=== PATIENT | female | born 1980 | race Caucasian/White ===

== ENCOUNTER 2019-04-05 15:28 | Emergency (ER) | payer OTHER ==
[~2019-04-05] VITALS: Ht 170.2 cm; Wt 81.8 kg
[2019-04-05] MEDS ORDERED: KEPP1TAB PO (15:42)
[2019-04-05] MEDS ORDERED: PRAZ5CAP PO (15:42)
[2019-04-05] MEDS ORDERED: TRAZ-189 PO (15:42)
[2019-04-05] MEDS ORDERED: CLONI1TA PO (15:42)
[2019-04-05] MEDS ORDERED: BUSP30TA PO (15:42)
[2019-04-05 16:07] LABS: BASO # 0.1 10^3/uL (0.0-0.2); BASO % 0.8 % (0.0-1.0); EOS # 0.1 10^3/uL (0.0-0.5); HEMOGLOBIN 14.7 g/dl (12.0-15.5); LYMPH # 1.9 10^3/uL (1.5-5.0); LYMPH % 29.1 % (24.0-44.0); MEAN CORPUSCULAR HEMOGLOBIN 30.7 pg (27.0-33.0); MEAN CORPUSCULAR HGB CONC 33.4 g/dl (32.0-36.5); MEAN CORPUSCULAR VOLUME 91.9 fl (80.0-96.0); MONO # 0.5 10^3/uL (0.0-0.8); NEUTROPHILS % 60.8 % (36.0-66.0); PLATELET COUNT, AUTOMATED 248 10^3/uL (150-450); RED BLOOD COUNT 4.79 10^6/uL (4.00-5.40); WHITE BLOOD COUNT 6.6 10^3/uL (4.0-10.0)
[2019-04-05 16:32] LABS: HCG, SERUM QUALITATIVE NEGATIVE (NEGATIVE)
[2019-04-05 16:45] LABS: ACETAMINOPHEN LEVEL < 2.0 UG/ML (10.0-30.0); ALBUMIN 3.5 GM/DL (3.2-5.2); ALT/SGPT 18 U/L (12-78); BILIRUBIN,DIRECT 0.1 MG/DL (0.0-0.2); BILIRUBIN,TOTAL 0.4 MG/DL (0.2-1.0); BLOOD UREA NITROGEN 9 MG/DL (7-18); CALCIUM LEVEL 8.9 MG/DL (8.5-10.1); CARBON DIOXIDE LEVEL 27 MEQ/L (21-32); CHLORIDE LEVEL 108 MEQ/L (98-107); CPK CREATINE PHOSPHOKINASE 96 U/L (26-192); CREATININE FOR GFR 0.63 MG/DL (0.55-1.30); ETHYL ALCOHOL (ETHANOL) < 0.003 % (0.000-0.010); GLOMERULAR FILTRATION RATE > 60.0 (>60); GLUCOSE, FASTING 86 MG/DL (70-100); POTASSIUM SERUM 4.2 MEQ/L (3.5-5.1); SALICYLATE LEVEL 1.8 MG/DL (5.0-30.0); SODIUM LEVEL 141 MEQ/L (136-145); TOTAL PROTEIN 6.7 GM/DL (6.4-8.2)
[2019-04-05 17:05] LABS: AMPHETAMINES LEVEL URINE NEGATIVE (NEGATIVE); BARBITURATES URINE NEGATIVE (NEGATIVE); BENZODIAZEPINES URINE NEGATIVE (NEGATIVE); CANNABINOIDS URINE POSITIVE (NEGATIVE); COCAINE METABOLITE URINE NEGATIVE (NEGATIVE); METHADONE URINE NEGATIVE (NEGATIVE); OPIATES URINE NEGATIVE (NEGATIVE); PHENCYCLIDINE URINE NEGATIVE (NEGATIVE)
[2019-04-05 17:30] VITALS: BP 100/55
--- NOTE | 2019-04-06 10:04 | ECGEPIP ---
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
== END 2019-04-05 20:00 | disposition home or self-care (01) ==
LOC: M ED 15:28
DX: F33.9 Major depressive disorder, recurrent, unspecified (principal); G40.909 Epilepsy, unspecified, not intractable, without status epilepticus; Z79.899 Other long term (current) drug therapy; F17.210 Nicotine dependence, cigarettes, uncomplicated
CPT/HCPCS: 36415; 80048; 80076; 80307; 82550; 84443; 84703; 85025; 93005; 93041; 94760; 99285; G0480

== ENCOUNTER 2019-10-30 01:55 | Emergency (ER) | payer OTHER ==
[~2019-10-30] VITALS: Ht 170.2 cm; Wt 81.8 kg
[~2019-10-30 01:55] MED LIST: BUSP30TA PO; CLONI1TA PO; KEPP1TAB PO; PRAZ5CAP PO; TRAZ-189 PO
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
[2019-10-30] MEDS ORDERED: AUGM500T34 PO (03:38)
[2019-10-30] MEDS ORDERED: IBUPROFEN 800 MG TAB PO ONE (03:45)
[2019-10-30 03:49] VITALS: BP 166/99
== END 2019-10-30 03:51 | disposition home or self-care (01) ==
LOC: M ED 01:55
DX: J32.9 Chronic sinusitis, unspecified (principal); T14.8XXA Other injury of unspecified body region, initial encounter; W22.8XXA Striking against or struck by other objects, initial encounter; Y92.018 Other place in single-family (private) house as the place of occurrence of the external cause; F43.10 Post-traumatic stress disorder, unspecified; Z87.820 Personal history of traumatic brain injury; Z79.899 Other long term (current) drug therapy; F17.210 Nicotine dependence, cigarettes, uncomplicated

== ENCOUNTER 2020-03-24 10:29 | Emergency (ER) | payer OTHER ==
[~2020-03-24] VITALS: Ht 170.2 cm; Wt 75.6 kg
[~2020-03-24 10:29] MED LIST changes: +AUGM500T34 PO
[2020-03-24] MEDS ORDERED: BUSP30TA (10:51)
[2020-03-24] MEDS ORDERED: VENL75CA47 (10:51)
[2020-03-24] MEDS ORDERED: PRAZ2CAP (10:51)
[2020-03-24] MEDS ORDERED: GABA-843 (10:51)
[2020-03-24] MEDS ORDERED: VENL150C43 (10:51)
[2020-03-24 11:13] LABS: BASO % 0.5 % (0.0-1.0); EOS # 0.2 10^3/uL (0.0-0.5); EOS % 3.6 % (0.0-3.0); HEMATOCRIT 39.9 % (36.0-47.0); HEMOGLOBIN 13.6 g/dl (12.0-15.5); LYMPH # 2.4 10^3/uL (1.5-5.0); LYMPH % 41.9 % (24.0-44.0); MEAN CORPUSCULAR HEMOGLOBIN 30.2 pg (27.0-33.0); MEAN CORPUSCULAR HGB CONC 34.1 g/dl (32.0-36.5); MEAN CORPUSCULAR VOLUME 88.5 fl (80.0-96.0); MONO # 0.5 10^3/uL (0.0-0.8); MONO % 9.3 % (0.0-5.0); NEUTROPHILS # 2.6 10^3/uL (1.5-8.5); NEUTROPHILS % 44.5 % (36.0-66.0); PLATELET COUNT, AUTOMATED 263 10^3/uL (150-450); RED BLOOD COUNT 4.51 10^6/uL (4.00-5.40); WHITE BLOOD COUNT 5.8 10^3/uL (4.0-10.0)
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
[2020-03-24] MEDS ORDERED: diphenhydrAMINE 50MG/ML VIAL (J1200) IV STA (11:21)
[2020-03-24] MEDS ORDERED: LORazepam 2 MG/ML VIAL IV STA (11:24)
[2020-03-24] MEDS ORDERED: LORazepam 2 MG/ML VIAL As Ordered ONE (11:24)
[2020-03-24 11:47] LABS: THYROID STIMULATING HORMONE 1.05 uIU/ML (0.358-3.740)
[2020-03-24 12:21] LABS: ALBUMIN 3.7 GM/DL (3.2-5.2); BILIRUBIN,DIRECT 0.1 MG/DL (0.0-0.2); BILIRUBIN,TOTAL 0.6 MG/DL (0.2-1.0); TOTAL PROTEIN 6.3 GM/DL (6.4-8.2)
[2020-03-24 13:30] LABS: AMPHETAMINES LEVEL URINE POSITIVE (NEGATIVE); BARBITURATES URINE NEGATIVE (NEGATIVE); BENZODIAZEPINES URINE NEGATIVE (NEGATIVE); CANNABINOIDS URINE POSITIVE (NEGATIVE); COCAINE METABOLITE URINE NEGATIVE (NEGATIVE); METHADONE URINE NEGATIVE (NEGATIVE); OPIATES URINE NEGATIVE (NEGATIVE); PHENCYCLIDINE URINE NEGATIVE (NEGATIVE)
[2020-03-24 14:00] VITALS: BP 121/66
--- NOTE | 2020-03-25 06:36 | ECGEPIP ---
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
== END 2020-03-24 14:29 | disposition home or self-care (01) ==
LOC: M ED 10:29 → EDBD 10:29 → M ED 14:29
DX: F15.920 Other stimulant use, unspecified with intoxication, uncomplicated (principal); R55 Syncope and collapse; F17.200 Nicotine dependence, unspecified, uncomplicated; F43.10 Post-traumatic stress disorder, unspecified; Z87.820 Personal history of traumatic brain injury
CPT/HCPCS: 36600; 70450; 80047; 80076; 80307; 82803; 84443; 84702; 85025; 93005; 93041; 96374; 99285; J2060

== ENCOUNTER 2021-04-16 10:19 | Emergency (ER) | payer OTHER ==
[~2021-04-16] VITALS: Ht 170.2 cm; Wt 80.4 kg
[~2021-04-16 10:19] MED LIST changes: +BUSP30TA; +GABA-282; +PRAZ2CAP; +VENL150C43; +VENL75CA47
--- OUTSIDE RECORDS SUMMARY | 2021-04-16 10:23 | CCD ---
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 Role Phone [facility] 2 [phone] Allergies Code Code System Name Reaction Severity Status Onset NKDA Medications Name Status Start Date Stop Date amoxicillin 500 mg-potassium clavulanate 125 mg tablet Completed 10/16/2020 buspirone 30 mg tablet Active Not avail able gabapentin 300 mg capsule Active Not av ailable levetiracetam 500 mg tablet Active Not available omeprazole 20 mg capsule,delayed release Active Not available prazosin 2 mg capsule Active Not availa ble trazodone 100 mg tablet Active Not avai lable venlafaxine ER 150 mg capsule,extended release 24 hr Active Not available venlafaxine ER 75 mg capsule,extended release 24 hr Active Not available Problems Name Status Onset Date Source Mixed Anxiety and Depressive Disorder Active 10/16/2020 Substance Abuse Active 10/16/2020 Nicotine Dependence Active 10/16/2020 Cannabis Abuse Active 10/16/2020 Seizure Disorder Active 10/16/2020 Traumatic Brain Injury Active 10/16/2020 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 Right Foot Drop Active 10/16/2020 Procedures Date Name Performed by Surgical Removal of Foreign Body Notes: glass of the face Information not available Fasciotomy Four Compartments of Leg Info rmation not available Notes: 2011 Results Lab Results Date Name Specimen Result Interpretation Description Value Range Status Address 11/08/2020 Iron + TIBC + Ferritin, Serum Blood venous Normal Iron, Total 139 mcg/dL 40-190 mcg/dL Final [facility]: [address] , [place] Blood venous Normal Iron Binding Capacity 38 9 mcg/dL (calc) 250-450 mcg/dL (calc) [facility] [address] , [place] Blood venous Normal % Saturation 36 % (calc) 16-4 5 % (calc) Final [facility]: [address], [place] Blood venous Normal Ferritin 30 NG/mL 16-154 NG/m L Final [facility]: [address] [facility] 11/08/2020 HIV 1+2 Ab + HIV1 P24 Ag, Quantitative Immunoassay, Serum Normal HIV Ag/Ab, 4TH Gen non-reactive non-reactive [facility] 11/08/2020 Lipid Panel, Blood Blood venous High Berna sterol, Total 204 mg/dL <200 mg/dL Final [facility]: [address] [facility] Blood venous HDL Cholesterol 55 mg/dL > or = 50 mg/dL [facility]: [address] [facility] Blood venous Triglycerides 102 mg/dL <150 mg/dL [facility]: [address] [facility] Blood venous High LDL-cholesterol 129 mg/d L (calc) <100 mg/dL (calc) [facility]: [address] [facility] Blood venous Chol/hdlc Ratio 3.7 calc <5.[address] [facility]: [address] [facility] Blood venous High Non HDL Cholesterol 149 mg/dL (calc) <130 mg/dL (calc) Final [facility]: [address] [facility] 11/08/2020 TSH + Free T4, Serum Blood venous Normal Tsh 0.71 m IU/L Final [facility]: [address] [facility] Blood venous Normal T4, Free 1.2 NG/dL 0.8-1.8 NG /dL Final [facility]: [address] [facility] 11/08/2020 CMP, Serum or Plasma Blood venous Normal Glucose 97 mg/dL 65-99 mg/dL [facility]: [address] [facility] Blood venous Normal Urea Nitrogen (BUN) 12 mg/dL 7-25 mg/dL [facility]: [address] [facility] Blood venous Normal Creatinine 0.57 mg/dL 0.50-1. 10 mg/dL [facility]: [address] [facility] Blood venous Normal eGFR Non-afr. [place] 1 18 mL/min/1.73m2 > or = 60 mL/min/1.73m2 Final [facility]: [address] [facility] Blood venous Normal eGFR 13 6 mL/min/1.73m2 > or = 60 mL/min/1.73m2 Final [facility]: [address] [facility] Blood venous BUN/creatinine Ratio not applicable (calc) 6-22 (calc) [facility]: [address] , [place] Blood venous Normal Sodium 138 mmol/L 135-146 mmo l/L [facility]: [address] [facility] Blood venous Normal Potassium 4.3 mmol/L 3.5-5.3 mmol/L [facility]: [address] [facility] Blood venous Normal Chloride 105 mmol/L 98-110 mm ol/L [facility]: [address] [facility] Blood venous Normal Carbon Dioxide 27 mmol/L 20-3 2 mmol/L [facility]: [address] [facility] Blood venous Normal Calcium 9.6 mg/dL 8.6-10.2 mg /dL [facility]: [address] [facility] Blood venous Normal Protein, Total 6.7 g/dL 6.1-8 .1 g/dL [facility]: [address] [facility] Blood venous Normal Albumin 4.1 g/dL 3.6-5.1 g/dL [facility]: [address] [facility] Blood venous Normal Globulin 2.6 g/dL (calc) 1.9- 3.7 g/dL (calc) [facility]: [address] [facility] Blood venous Normal Albumin/globulin Ratio 1 .6 (calc) 1.0-2.5 (calc) [facility]: [address] [facility] Blood venous Normal Bilirubin, Total 1.0 mg/dL 0. 2-1.2 mg/dL [facility]: [address] [facility] Blood venous Normal Alkaline Phosphatase 63 U/L 3 1-125 U/L [facility]: [address] [facility] Blood venous Normal Ast 11 U/L 10-30 U/L [facility]: [address] [facility] Blood venous Normal Alt 9 U/L 6-29 U/L Final [facility]: [address] [facility] [facility] 11/[facility]/2020 CBC W/ Auto Diff Blood venous Normal White B lood Cell Count 8.5 thousand/uL 3.8-10.8 thousand/uL [facility]: [address] [facility] Blood venous Normal Red Blood Cell Count 4.7 0 million/uL 3.80-5.10 million/uL [facility] Normal Hemoglobin 15.0 g/dL 11.7-15. 5 g/dL Final [facility]: [address] [facility] Blood venous Normal Hematocrit 43.3 % 35.0-45.0 % [facility]: [address] [facility] Blood venous Normal Mcv 92.1 fL 80.0-100.[address] [facility] [facility] Blood venous Normal Mch 31.9 pg 27.0-33.[address] [facility] [address] [facility] Blood venous Normal Mchc 34.6 g/dL 32.0-36.0 g/dL [facility]: [address] [facility] Blood venous Normal Rdw 12.5 % 11.0-15.0 % [facility] [address] [facility] Blood venous Normal Platelet Count 309 thous and/uL 140-400 thousand/uL [facility]: [address] [facility] Blood venous Normal Mpv 9.4 fL 7.5-12.5 fL [facility]: [address] [facility] Blood venous Normal Absolute Neutrophils 531 3 cells/uL 9988-0512 cells/uL [facility]: [address] [facility] Blood venous Normal Absolute Lymphocytes 232 1 cells/uL 850-3900 cells/uL [facility]: [address] [facility] Blood venous Normal Absolute Monocytes 587 c ells/uL 200-950 cells/uL [facility]: [address] [facility] Blood venous Normal Absolute Eosinophils 213 cells/uL 15-500 cells/uL [facility]: [address] [facility] Blood venous Normal Absolute Basophils 68 ce lls/uL 0-200 cells/uL [facility] [place]: [address] [facility] Blood venous Normal Neutrophils 62.5 % 38-80 % Fi [facility]: [address] [facility] Blood venous Normal Lymphocytes 27.3 % 15-49 % Fi [facility]: [address] [facility] Blood venous Normal Monocytes 6.9 % 0-13 % [facility] [facility] Blood venous Normal Eosinophils 2.5 % 0-8 % Fin al [facility]: [address] [facility] Blood venous Normal Basophils 0.8 % 0-2 % [facility]: [address] [facility] 11/08/2020 Hepatitis C Virus Ab, Serum ABNORMAL Hepatitis C Antibody reactive non-reactive [facility]: [address] [facility] High Index 17.70 <1.00 [facility]: [address] [facility] 11/08/2020 Hepatitis C Virus RNA, Quant, PCR, Serum or Plasma ABNORMAL HCV RNA, Quantitative Real Time PCR <15 detected IU/mL not detected IU/mL [facility]: [address] [facility] ABNORMAL HCV RNA, Quantitative Real Christiano e PCR <1.18 detected log IU/mL not detected log IU/mL [facility] [address] [facility] Comment [facility] [address] [facility] 11/08/2020 Vitamin B12 + Folate, Serum or Blood Blood venous Normal Vitamin B12 482 pg/mL 200-1100 pg/mL Final [facility]: [address] [facility] Blood venous Normal Folate, Serum 17.0 NG/mL [facility]: [address] [facility] 11/08/2020 Vitamin D, 25-Hydroxy, Total, Serum Blood venous Low Vitamin D,25-Oh,total,ia 15 NG/mL 30-100 NG/mL Final [facility]: [address] [facility] 11/08/2020 HbA1C (Hemoglobin a1C), Blood Blood venous Normal Hemoglobin a1C 4.8 % of total HGB <5.7 % of total HGB Final [facility]: [address] [facility] Past Encounters 01/15/2021 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 11/08/2020 Angeles Orr MD: [address] [place] [phone], Ph. 11/03/2020 Tobacco Dependence Caused by Cigarettes; Body Mass Index 25-29 - Overweight; Substance Abuse; Right Foot Drop; Adult Health Examination; Right Leg Peripheral Neuropathy; Drug Abuse in Remission; Cannabis Dependence; Mixed Anxiety and Depressive Disorder SIMONE [facility]: [address] [place] [phone], Ph. 10/16/2020 Patient New to Provider; Right Foot Drop; Posttraumatic Stress Disorder; Seizure Disorder Angeles Orr MD: [address] [place] [phone], Ph. Social History Tobacco Smoking Status Light Tobacco Smoker (1/4 pack per da y) Vaccine List None recorded. Plan of Care Patient Instructions Please try to maintain good nutrition, adequate rest, adequate physical activities and adequate intake of water daily. Reminders Provider Appointments None recorded. Lab None recorded. Referral None recorded. Procedures None recorded. Surgeries None recorded. Imaging None recorded. Vitals 11/08/2020 09:50AM NURSE LAB COLLECTION Height 67 in 11/03/2020 03:00PM SAME DAY 20 Height Weight BMI Blood Pressure 67 in 164 lbs 4 oz 25.7 kg/m2 122/81 mm[Hg] 10/16/2020 09:40AM NEW PATIENT (14yrs - OLDER) Height Weight BMI Blood Pressure 67 in 166 lbs 6 oz 26.1 kg/m2 126/81 mm[Hg]
--- OUTSIDE RECORDS SUMMARY | 2021-04-16 10:23 | CCD ---
Author Author [facility] Organization [facility] Address Unknown Phone Unavailable Care Team Providers Care Kitchen Operator Name Role Phone Gemma Rae Unavailable [phone] Dominga, Catie Unavailable Unavailable Dominga, Catie Unavailable Unavailable Dominga, Catie Unavailable Unavailable Dominga, Catie Unavailable Unavailable Dominga, Catie Unavailable Unavailable Dominga, Catie Unavailable Unavailable Dominga, Catie Unavailable Unavailable Dominga, Catie Unavailable Unavailable Dominga, Catie Unavailable Unavailable Dominga, Catie Unavailable Unavailable Dominga, Catie Unavailable Unavailable Dominga, Catie Unavailable Unavailable Dominga, Catie Unavailable Unavailable Dominga, Catie Unavailable Unavailable Dominga, Catie Unavailable Unavailable Dominga, Catie Unavailable Unavailable Dominga, Catie Unavailable Unavailable Dominga, Catie Unavailable Unavailable Dominga, Catie Unavailable Unavailable Dominga, Catie Unavailable Unavailable Dominga, Catie Unavailable Unavailable Dominga, Catie Unavailable Unavailable Dominga, Catie Unavailable Unavailable Dominga, Catie Unavailable Unavailable Dominga, Catie Unavailable Unavailable Dominga, Catie Unavailable Unavailable Dino Arnold MD Unavailable Unavailable Dino Arnold MD Unavailable Unavailable Dino Arnold MD Unavailable Unavailable Dino Arnold MD Unavailable Unavailable Dino Arnold MD Unavailable Unavailable Dino Arnold MD Unavailable Unavailable Dino Arnold MD Unavailable Unavailable Dino Arnold MD Unavailable Unavailable Dino Arnold MD Unavailable Unavailable Dino Arnold MD Unavailable Unavailable Dino Arnold MD Unavailable Unavailable Dino Arnold MD Unavailable Unavailable Dino Arnold MD Unavailable Unavailable Dino Arnold MD Unavailable Unavailable Dino Arnold MD Unavailable Unavailable Dino Arnold MD Unavailable Unavailable Dino Arnold MD Unavailable Unavailable Dino Arnold MD Unavailable Unavailable Dino Arnold MD Unavailable Unavailable Dino Arnold MD Unavailable Unavailable Dino Arnold MD Unavailable Unavailable Dino Arnold MD Unavailable Unavailable Dino Arnold MD Unavailable Unavailable Dino Arnold MD Unavailable Unavailable Dino Arnold MD Unavailable Unavailable Dino Arnold MD Unavailable Unavailable Dino Arnold MD Unavailable Unavailable Dino Arnold MD Unavailable Unavailable Dino Arnold MD Unavailable Unavailable Dino Arnold MD Unavailable Unavailable Dino Arnold MD Unavailable Unavailable Dino Arnold MD Unavailable Unavailable Dino Arnold MD Unavailable Unavailable Dino Arnold MD Unavailable Unavailable Dino Arnold MD Unavailable Unavailable Dino Arnold MD Unavailable Unavailable Dino Arnold MD Unavailable Unavailable Dino Arnold MD Unavailable Unavailable Dino Arnold MD Unavailable Unavailable Dino Arnold MD Unavailable Unavailable Dino Arnold MD Unavailable Unavailable Dino Arnold MD Unavailable Unavailable Dino Arnold MD Unavailable Unavailable Dino Arnold MD Unavailable Unavailable Dino Arnold MD Unavailable Unavailable Dino Arnold MD Unavailable Unavailable Dino Arnold MD Unavailable Unavailable Dino Arnold MD Unavailable Unavailable Dino Arnold MD Unavailable Unavailable Dino Arnold MD Unavailable Unavailable Dino Arnold MD Unavailable Unavailable Dino Arnold MD Unavailable Unavailable Dino Arnold MD Unavailable Unavailable Dino Arnold MD Unavailable Unavailable Dino Arnold MD Unavailable Unavailable Dino Arnold MD Unavailable Unavailable Dino Arnold MD Unavailable Unavailable Dino Arnold MD Unavailable Unavailable Dino Arnold MD Unavailable Unavailable Dino Arnold MD Unavailable Unavailable Dino Arnold MD Unavailable Unavailable Dino Arnold MD Unavailable Unavailable Dino Arnold MD Unavailable Unavailable Dino Arnold MD Unavailable Unavailable Dino Arnold MD Unavailable Unavailable Dino Arnold MD Unavailable Unavailable Dino Arnold MD Unavailable Unavailable Dino Arnold MD Unavailable Unavailable Dino Arnold MD Unavailable Unavailable Dino Arnold MD Unavailable Unavailable Dino Arnold MD Unavailable Unavailable Dino Arnold MD Unavailable Unavailable Dino Arnold MD Unavailable Unavailable Dino Arnold MD Unavailable Unavailable Dino Arnold MD Unavailable Unavailable Dino Arnold MD Unavailable Unavailable Dino Arnold MD Unavailable Unavailable Dino Arnold MD Unavailable Unavailable Dino Arnold MD Unavailable Unavailable Dino Arnold MD Unavailable Unavailable Dino Arnold MD Unavailable Unavailable Dino Arnold MD Unavailable Unavailable Dino Arnold MD Unavailable Unavailable Arnold, Dino Zhou MD Unavailable Unavailable Arnold, Dino Zhou MD Unavailable Unavailable Arnold, Dino Zhou MD Unavailable Unavailable Arnold, Dino Zhou MD Unavailable Unavailable Arnold, Dino Zhou MD Unavailable Unavailable Arnold, Dino Zhou MD Unavailable Unavailable Arnold, Dino Zhou MD Unavailable Unavailable Arnold, Dino Zhou MD Unavailable Unavailable Arnold, Dino Zhou MD Unavailable Unavailable Arnold, Dino Zhou MD Unavailable Unavailable Carlitos, A Evelyn METALS SALES REPRESENTATIVE Unavailable Unavailable Carlitos, A Evelyn METALS SALES REPRESENTATIVE Unavailable Unavailable Carlitos, A Evelyn METALS SALES REPRESENTATIVE Unavailable Unavailable Carlitos, A Evelyn METALS SALES REPRESENTATIVE Unavailable Unavailable Carlitos, A Evelyn METALS SALES REPRESENTATIVE Unavailable Unavailable Carlitos, A Evelyn METALS SALES REPRESENTATIVE Unavailable Unavailable Carlitos, A Evelyn METALS SALES REPRESENTATIVE Unavailable Unavailable Carlitos, A Evelyn METALS SALES REPRESENTATIVE Unavailable Unavailable Carlitos, A Evelyn METALS SALES REPRESENTATIVE Unavailable Unavailable Carlitos, A Evelyn METALS SALES REPRESENTATIVE Unavailable Unavailable Carlitos, A Evelyn METALS SALES REPRESENTATIVE Unavailable Unavailable Carlitos, A Evelyn METALS SALES REPRESENTATIVE Unavailable Unavailable Carlitos, A Evelyn METALS SALES REPRESENTATIVE Unavailable Unavailable Carlitos, A Evelyn METALS SALES REPRESENTATIVE Unavailable Unavailable Carlitos, A Evelyn METALS SALES REPRESENTATIVE Unavailable Unavailable Carlitos, A Evelyn METALS SALES REPRESENTATIVE Unavailable Unavailable Carlitos, A Evelyn METALS SALES REPRESENTATIVE Unavailable Unavailable Carlitos, A Evelyn METALS SALES REPRESENTATIVE Unavailable Unavailable Carlitos, A Evelyn METALS SALES REPRESENTATIVE Unavailable Unavailable Carlitos, A Evelyn METALS SALES REPRESENTATIVE Unavailable Unavailable Carlitos, A Evelyn METALS SALES REPRESENTATIVE Unavailable Unavailable Carlitos, A Evelyn METALS SALES REPRESENTATIVE Unavailable Unavailable Carlitos, A Evelyn METALS SALES REPRESENTATIVE Unavailable Unavailable Carlitos, A Evelyn METALS SALES REPRESENTATIVE Unavailable Unavailable Carlitos, A Evelyn METALS SALES REPRESENTATIVE Unavailable Unavailable Carlitos, A Evelyn METALS SALES REPRESENTATIVE Unavailable Unavailable Carlitos, A Evelyn METALS SALES REPRESENTATIVE Unavailable Unavailable Carlitos, A Evelyn METALS SALES REPRESENTATIVE Unavailable Unavailable Carlitos, A Evelyn METALS SALES REPRESENTATIVE Unavailable Unavailable Carlitos, A Evelyn METALS SALES REPRESENTATIVE Unavailable Unavailable Carlitos, A Evelyn METALS SALES REPRESENTATIVE Unavailable Unavailable Re-disclosure Warning The records that you are about to access may contain information from federally-assisted alcohol or drug abuse programs. If such information is present, then the following federally mandated warning applies: This information has been disclosed to you from records protected by federal confidentiality rules (42 CFR part 2). The federal rules prohibit you from making any further disclosure of this information unless further disclosure is expressly permitted by the written consent of the person to whom it pertains or as otherwise permitted by 42 CFR part 2. A general authorization for the release of medical or other information is NOT sufficient for this purpose. The Federal rules restrict any use of the information to criminally investigate or prosecute any alcohol or drug abuse patient.The records that you are about to access may contain highly sensitive health information, the redisclosure of which is protected by Article 27-F of the [facility] Public Health law. If you continue you may have access to information: Regarding HIV / AIDS; Provided by facilities licensed or operated by the [facility] Office of Mental Health; or Provided by the [facility] Office for People With Developmental Disabilities. If such information is present, then the following [facility] mandated warning applies: This information has been disclosed to you from confidential records which are protected by state law. State law prohibits you from making any further disclosure of this information without the specific written consent of the person to whom it pertains, or as otherwise permitted by law. Any unauthorized further disclosure in violation of state law may result in a fine or group home sentence or both. A general authorization for the release of medical or other information is NOT sufficient authorization for further disc losure. Encounters Encounter Providers Location Date Indications Data Source(s ) Gemma Rae [facility] [place] [address] [place] [address], Ph. Attender: Gemma Rae [facility] Medical 01/15/2021 12:00:00 AM EDT [place] ([facility]) Angeles Orr MD: [address] [place] [address], Ph. Attender: Angeles Orr [facility] Medical 11/08/2020 12:00:00 AM EDT [place] ([facility]) Angeles Orr MD: [address] [place] [address], Ph. Attender: Angeles Orr [facility] Medical 11/08/2020 12:00:00 AM EDT [place] ([facility]) COLEMAN Hutchinson: [address], [place] [address], Ph. Attender: Evelyn Urbina [facility] Medical 11/03/2020 12:00:00 AM EDT [place] ([facility]) Evelyn Urbina [facility]: [address], [place] [address], Ph. Attender: Evelyn Urbina [facility] Medical 11/03/2020 12:00:00 AM EDT [place] ([facility]) Evelyn Urbina [facility]: [address], [place] [address], Ph. Attender: Evelyn Urbina [facility] Medical 11/03/2020 12:00:00 AM EDT [place] ([facility]) Angeles Orr MD: [address], [place] [address], Ph. Attender: Angeles Orr [facility] Medical 10/16/2020 12:00:00 AM EDT [place] ([facility]) Angeles Orr MD: [address], [place] [address], Ph. Attender: Angeles Orr [facility] Medical 10/16/2020 12:00:00 AM EDT [place] ([facility]) Angeles Orr MD: [address], [place] [address], Ph. Attender: Angeles Orr [facility] Medical 10/16/2020 12:00:00 AM EDT [place] ([facility]) Angeles Orr MD: [address], [place] [address], Ph. Attender: Angeles Orr [facility] 10/16/2020 12:00:00 AM EDT [place] ([facility]) Outpatient Attender: Abelardo Arnold MD FP 03/24/2020 05:33:02 PM EDT [facility] Outpatient Attender: Abelardo Arnold MD FP 03/24/2020 12:24:02 PM EDT [facility] Outpatient Attender: Abelardo Arnold MD FP 03/24/2020 12:24:00 PM EDT [facility] Outpatient Attender: Abelardo Arnold MD FP 03/24/2020 12:20:04 PM EDT [facility] Outpatient Attender: Abelardo Arnold MD FP 03/24/2020 12:20:02 PM EDT [facility] Outpatient Attender: Abelardo Arnold MD FP 03/24/2020 12:18:02 PM EDT [facility] Outpatient Attender: Abelardo Arnold MD FP 03/24/2020 12:18:00 PM EDT [facility] Outpatient Attender: Abelardo Arnold MD FP 03/23/2020 04:58:00 PM EDT [facility] Outpatient Attender: Abelardo Arnold MD FP 03/23/2020 04:56:01 PM EDT [facility] Outpatient Attender: Abelardo Arnold MD FP 03/23/2020 04:53:00 PM EDT [facility] Outpatient FP 03/23/2020 04:52:00 PM EDT [facility] Outpatient FP 03/23/2020 03:11:00 PM EDT [facility] Outpatient FP 03/23/2020 03:10:01 PM EDT [facility] Outpatient FP 03/23/2020 02:47:00 PM EDT [facility] Medications Medication Brand Name Start Date Product Form Dose Route Admi nistrative Instructions Pharmacy Instructions Status Indications Reaction Description Data Source(s) Amoxicillin 500 MG / Clavulanate 125 MG Oral Tablet amoxicillin 500 mg-potassium clavulanate 125 mg tablet amoxicillin 500 mg-potassium clavulanate 125 mg tablet completed amoxicillin 500 MG / clavulanate 125 MG Oral Tablet [place] ([facility]) Amoxicillin 500 MG / Clavulanate 125 MG Oral Tablet amoxicillin 500 mg-potassium clavulanate 125 mg tablet amoxicillin 500 mg-potassium clavulanate 125 mg tablet completed amoxicillin 500 MG / clavulanate 125 MG Oral Tablet [place] ([facility]) Amoxicillin 500 MG / Clavulanate 125 MG Oral Tablet amoxicillin 500 mg-potassium clavulanate 125 mg tablet amoxicillin 500 mg-potassium clavulanate 125 mg tablet completed amoxicillin 500 MG / clavulanate 125 MG Oral Tablet [place] ([facility]) Amoxicillin 500 MG / Clavulanate 125 MG Oral Tablet amoxicillin 500 mg-potassium clavulanate 125 mg tablet amoxicillin 500 mg-potassium clavulanate 125 mg tablet completed amoxicillin 500 MG / clavulanate 125 MG Oral Tablet [place] ([facility]) Insurance Providers Payer name Policy type / Coverage type Policy ID Covered constitution party ID Covered constitution party's relationship to rivera Policy Rivera Plan Information JUSTIN [id number] SP [id number] [place]ARE [place] [id number] S [id number] Managed Care Justin P [id number] S [id number] Medicaid S [id number] S [id number] [place] [id number] 18 [id number] JUSTIN [id number] SP [id number] Problems, Conditions, and Diagnoses Code Display Name Description Problem Type Effective Dates Data Source(s) [id number] Right foot drop Right Foot Drop Problem 2020 12:00:00 AM EDT [place] ([facility]) [id number] Muscle paralysis Muscle Paralysis Problem 10/16/2020 12 :00:00 AM EDT [facility]) [id number] Traumatic brain injury Traumatic Brain Injury Problem 10/16/2020 12:00:00 AM EDT [place] ([facility]) 613870136 Seizure disorder Seizure Disorder Problem 10/16/2020 12 :00:00 AM EDT [facility]) [id number] Cannabis abuse Cannabis Abuse Problem 10/16/2020 12:00: 00 AM EDT [facility]) 50141929 Nicotine dependence Nicotine Dependence Problem 0 10/16/2020 12:00:00 AM EDT [place] ([facility]) 41583663 Substance abuse Substance Abuse Problem 10/16/2020 12:0 0:00 AM EDT [facility]) [id number] Mixed anxiety and depressive disorder Mi xed Anxiety and Depressive Disorder Problem 10/16/2020 12:00:00 AM EDT [place] ([facility]) [id number] Right foot drop Right Foot Drop Problem 2020 12:00:00 AM EDT [place] ([facility]) 988515012 Muscle paralysis Muscle Paralysis Problem 10/16/2020 12 :00:00 AM EDT [place] ([facility]) 264510670 Traumatic brain injury Traumatic Brain Injury Problem 10/16/2020 12:00:00 AM EDT [place] ([facility]) 388641275 Seizure disorder Seizure Disorder Problem 10/16/2020 12 :00:00 AM EDT [place] ([facility]) 12161622 Cannabis abuse Cannabis Abuse Problem 10/16/2020 12:00: 00 AM EDT [place] ([facility]) 38614411 Nicotine dependence Nicotine Dependence Problem 0 10/16/2020 12:00:00 AM EDT [place] ([facility]) 35193071 Substance abuse Substance Abuse Problem 10/16/2020 12:0 0:00 AM EDT [place] ([facility]) 806821283 Mixed anxiety and depressive disorder Mi xed Anxiety and Depressive Disorder Problem 10/16/2020 12:00:00 AM EDT [place] ([facility]) [id number] Right foot drop Right Foot Drop Problem 2020 12:00:00 AM EDT [place] ([facility]) 125079684 Muscle paralysis Muscle Paralysis Problem 10/16/2020 12 :00:00 AM EDT [place] ([facility]) 340786213 Traumatic brain injury Traumatic Brain Injury Problem 10/16/2020 12:00:00 AM EDT [place] ([facility]) 317894682 Seizure disorder Seizure Disorder Problem 10/16/2020 12 :00:00 AM EDT [place] ([facility]) 12188950 Cannabis abuse Cannabis Abuse Problem 10/16/2020 12:00: 00 AM EDT [place] ([facility]) 63645077 Nicotine dependence Nicotine Dependence Problem 0 10/16/2020 12:00:00 AM EDT [place] ([facility]) 45307980 Substance abuse Substance Abuse Problem 10/16/2020 12:0 0:00 AM EDT [place] ([facility]) 895482472 Mixed anxiety and depressive disorder Mi xed Anxiety and Depressive Disorder Problem 10/16/2020 12:00:00 AM EDT [place] ([facility]) [id number] Right foot drop Right Foot Drop Problem 2020 12:00:00 AM EDT [place] ([facility]) 211914203 Muscle paralysis Muscle Paralysis Problem 10/16/2020 12 :00:00 AM EDT [place] ([facility]) 922305302 Traumatic brain injury Traumatic Brain Injury Problem 10/16/2020 12:00:00 AM EDT [place] ([facility]) 916837041 Seizure disorder Seizure Disorder Problem 10/16/2020 12 :00:00 AM EDT [place] ([facility]) 20314782 Cannabis abuse Cannabis Abuse Problem 10/16/2020 12:00: 00 AM EDT [place] ([facility]) 95426683 Nicotine dependence Nicotine Dependence Problem 0 10/16/2020 12:00:00 AM EDT [place] ([facility]) 90626194 Substance abuse Substance Abuse Problem 10/16/2020 12:0 0:00 AM EDT [place] ([facility]) 122666451 Mixed anxiety and depressive disorder Mi xed Anxiety and Depressive Disorder Problem 10/16/2020 12:00:00 AM EDT [place] ([facility]) Surgeries/Procedures No Information Results ID Date Data Source [id number] 11/08/2020 11:10:00 AM EDT [place] ([facility]) Name Value Range Interpretation Code Description Data Jacinta rce(s) Supporting Document(s) Hemoglobin A1c/Hemoglobin.total in Blood 4.8 %_of_total_HGB <5.7 Hemoglobin a1C [place] ([facility]) ID Date Data Source [id number] 11/08/2020 11:10:00 AM EDT [facility]) Name Value Range Interpretation Code Description Data Jacinta rce(s) Supporting Document(s) Calcidiol [Mass/volume] in Serum or Plasma 15 NG/mL 30-100 Below low normal Vitamin D,25-Oh,total,ia [facility]) ID Date Data Source [id number] 11/08/2020 11:10:00 AM EDT [facility]) Name Value Range Interpretation Code Description Data Jacinta rce(s) Supporting Document(s) Cobalamin (Vitamin B12) [Mass/volume] in Serum or Plasma 482 pg/mL 200-1100 Vitamin B12 [place] ([facility]) Folate [Mass/volume] in Serum or Plasma 17.0 NG/mL Folate, Serum [facility]) ID Date Data Source [id number] 11/08/2020 11:10:00 AM EDT [facility]) Name Value Range Interpretation Code Description Data Jacinta rce(s) Supporting Document(s) comment Comment [place] ([facility]) Hepatitis C virus RNA [Units/volume] (vi ral load) in Serum or Plasma by Probe and target amplification method <15 detected not detected Abnormal (applies to non-numeric results) HCV RNA, Quantitative Real Time PCR [place] ([facility]) Hepatitis C virus RNA [log units/volume] (viral load) in Serum or Plasma by Probe and target amplification method <1.18 detected not detected Ab normal (applies to non-numeric results) HCV RNA, Quantitative Real Time PCR [facility]) ID Date Data Source [id number] 11/08/2020 11:10:00 AM EDT [facility]) Name Value Range Interpretation Code Description Data Jacinta rce(s) Supporting Document(s) Hepatitis C virus Ab [Presence] in Serum or Plasma by Immuno assay reactive non-reactive Abnormal (applies to non-numeric results) Hepatitis C Antibo dy [place] ([facility]) Hepatitis C virus Ab Signal/Cutoff in Serum or Plasma by Immunoa ssay <1.00 Above high normal Index [place] ([facility]) ID Date Data Source [id number] 11/08/2020 11:10:00 AM EDT [place] ([facility]) Name Value Range Interpretation Code Description Data Jacinta rce(s) Supporting Document(s) Erythrocytes [#/volume] in Blood by Automated count 4.70 million/uL 3.80-5.10 Red Blood Cell Count [place] ([facility]) Leukocytes [#/volume] in Blood by Automated count 8.5 thousand/uL 3 .8-10.8 White Blood Cell Count [place] ([facility]) Hematocrit [Volume Fraction] of Blood by Automated count 43.3 % 35.0-45.0 Hematocrit [place] ([facility]) Erythrocyte mean corpuscular volume [Entitic volume] by Auto mated count 92.1 fL 80.0-100.0 Mcv [place] ([facility]) Hemoglobin [Mass/volume] in Blood 15.0 g/dL 11.7-15.5 He moglobin [place] ([facility]) Erythrocyte mean corpuscular hemoglobin [Entitic mass] by Automated count 31.9 pg 27.0-33.0 Mch [place] ([facility]) Platelets [#/volume] in Blood by Automated count 309 thousand/uL 14 0-400 Platelet Count [place] ([facility]) Erythrocyte mean corpuscular hemoglobin concentration [Mass/volume] by Automated count 34.6 g/dL 32.0-36.0 Mchc [place] ([facility]) Platelet mean volume [Entitic volume] in Blood by Epifanio 9.4 fL 7.5-12.5 Mpv [place] ([facility]) Erythrocyte distribution width [Ratio] by Automated count 12.5 % 11.0-15.0 Rdw [place] ([facility]) Neutrophils [#/volume] in Blood by Automated count 5313 cells/uL 15 00-7800 Absolute Neutrophils [place] ([facility]) Eosinophils [#/volume] in Blood by Automated count 213 cells/uL 15- 500 Absolute Eosinophils [place] ([facility]) Monocytes [#/volume] in Blood by Automated count 587 cells/uL 200-9 50 Absolute Monocytes [place] ([facility]) Lymphocytes [#/volume] in Blood by Automated count 2321 cells/uL 85 0-3900 Absolute Lymphocytes [place] ([facility]) Basophils [#/volume] in Blood by Automated count 68 cells/uL 0-200 Absolute Basophils [place] ([facility]) Neutrophils/100 leukocytes in Blood by Automated count 62.5 % 38-80 Neutrophils [place] ([facility]) Monocytes/100 leukocytes in Blood by Automated count 6.9 % 0-13 Monocytes [place] ([facility]) Lymphocytes/100 leukocytes in Blood by Automated count 27.3 % 15-49 Lymphocytes [place] ([facility]) Eosinophils/100 leukocytes in Blood by Automated count 2.5 % 0-8 Eosinophils [place] ([facility]) Basophils/100 leukocytes in Blood by Automated count 0.8 % 0-2 Basophils [place] ([facility]) ID Date Data Source [id number] 11/08/2020 11:10:00 AM EDT [facility]) Name Value Range Interpretation Code Description Data Jacinta rce(s) Supporting Document(s) Glucose [Mass/volume] in Serum or Plasma 97 mg/dL 65-99 Glucose [facility]) Glomerular filtration rate/1.73 sq M.pre dicted among non-blacks [Volume Rate/Area] in Serum, Plasma or Blood by Creatinine-based formula (CKD-EPI) 118 mL/min/1.73m2 > or = 60 eGFR Non-afr. [place] ([facility]) Urea nitrogen [Mass/volume] in Serum or Plasma 12 mg/dL 7-25 [facility] N[facility] (BUN) [facility] Creatinine [Mass/volume] in Serum or Plasma 0.57 mg/dL 0.50-1.10 Creatinine [facility] Sodium [Moles/volume] in Serum or Plasma 138 mmol/L 135-146 Sodium [facility] Glomerular filtration rate/1.73 sq M.pre dicted among blacks [Volume Rate/Area] in Serum, Plasma or Blood by Creatinine-based formula (CKD-EPI) 136 mL/min/1.73m2 > or = 60 eGFR [place] ([facility]) Urea nitrogen/Creatinine [Mass Ratio] in Serum or Plasma not applic able 6-22 BUN/creatinine Ratio [place] ([facility]) Potassium [Moles/volume] in Serum or Plasma 4.3 mmol/L 3.5-5.3 Potassium [place] ([facility]) Chloride [Moles/volume] in Serum or Plasma 105 mmol/L 98-110 Chloride [place] ([facility]) Calcium [Mass/volume] in Serum or Plasma 9.6 mg/dL 8.6-10.2 Calcium [place] ([facility]) Carbon dioxide, total [Moles/volume] in Serum or Plasma 27 mmol/L 20-32 Carbon Dioxide [place] ([facility]) Protein [Mass/volume] in Serum or Plasma 6.7 g/dL 6.1-8.1 Protein, Total [place] ([facility]) Albumin/Globulin [Mass Ratio] in Serum or Plasma 1.6 (calc) 1.0-2 .5 Albumin/globulin Ratio [place] ([facility]) Bilirubin.total [Mass/volume] in Serum or Plasma 1.0 mg/dL 0.2-1 .2 Bilirubin, Total [place] ([facility]) Globulin [Mass/volume] in Serum by calculation 2.6 g/dL_(calc) 1.9- 3.7 Globulin [place] ([facility]) Albumin [Mass/volume] in Serum or Plasma 4.1 g/dL 3.6-5.1 Albumin [place] ([facility]) Alanine aminotransferase [Enzymatic activity/volume] in Seru m or Plasma 9 U/L 6-29 Alt [place] ([facility]) Aspartate aminotransferase [Enzymatic activity/volume] in Serum or Plasma 11 U/L 10-30 Ast [place] ([facility]) Alkaline phosphatase [Enzymatic activity/volume] in Serum or Plasma 63 U/L 31-125 Alkaline Phosphatase [place] ([facility]) ID Date Data Source [id number] 11/08/2020 11:10:00 AM EDT [place] ([facility]) Name Value Range Interpretation Code Description Data Jacinta rce(s) Supporting Document(s) Thyrotropin [Units/volume] in Serum or Plasma 0.71 mIU/L Tsh [place] ([facility]) Thyroxine (T4) free [Mass/volume] in Serum or Plasma 1.2 NG/dL 0 .8-1.8 T4, Free [place] ([facility]) ID Date Data Source [id number] 11/08/2020 11:10:00 AM EDT [facility]) Name Value Range Interpretation Code Description Data Jacinta rce(s) Supporting Document(s) Cholesterol [Mass/volume] in Serum or Plasma 204 mg/dL <200 Above high normal Cholesterol, Total [place] ([facility]) Cholesterol in HDL [Mass/volume] in Serum or Plasma 55 mg/dL > or = 50 HDL Cholesterol [place] ([facility]) Cholesterol in LDL [Mass/volume] in Serum or Plasma by calculation 129 mg/dL_(calc) <100 Above high normal LDL-cholesterol [place] ([facility]) Triglyceride [Mass/volume] in Serum or Plasma 102 mg/dL <150 Triglycerides [place] ([facility]) Cholesterol.total/Cholesterol in HDL [Mass Ratio] in Serum o r Plasma 3.7 calc <5.0 Chol/hdlc Ratio [place] ([facility]) Cholesterol non HDL [Mass/volume] in Serum or Plasma 149 mg/dL_( calc) <130 Above high normal Non HDL Cholesterol [place] ([facility]) ID Date Data Source [id number] 11/08/2020 11:10:00 AM EDT [facility]) Name Value Range Interpretation Code Description Data Jacinta rce(s) Supporting Document(s) HIV 1+2 Ab+HIV1 p24 Ag [Presence] in Serum or Plasma b y Immunoassay non-reactive non-reactive HIV Ag/Ab, 4TH Gen [place] ([facility]) ID Date Data Source [id number] 11/08/2020 11:10:00 AM EDT [facility]) Name Value Range Interpretation Code Description Data Jacinta rce(s) Supporting Document(s) Iron [Mass/volume] in Serum or Plasma 139 mcg/dL 40-190 Iron, Total [place] ([facility]) Iron saturation [Mass Fraction] in Serum or Plasma 36 %_(calc) 16- 45 % Saturation [place] ([facility]) Iron binding capacity [Mass/volume] in Serum or Plasma 389 m cg/dL_(calc) 250-450 Iron Binding Capacity [place] ([facility]) Ferritin [Mass/volume] in Serum or Plasma 30 NG/mL 16-154 Ferritin [facility]) ID Date Data Source [id number] 03/24/2020 11:01:00 AM EDT [facility] Name Value Range Interpretation Code Description Data Jacinta rce(s) Supporting Document(s) TSH 1.050 microintl units/mL 0.358-3.740 N [facility] ID Date Data Source [id number] 03/24/2020 11:01:00 AM EDT [facility] Name Value Range Interpretation Code Description Data Jacinta rce(s) Supporting Document(s) TSH 1.050 microintl units/mL 0.358-3.740 N [facility] ID Date Data Source [id number] 03/24/2020 11:01:00 AM EDT [facility] Name Value Range Interpretation Code Description Data Jacinta rce(s) Supporting Document(s) HCT 39.9 % 36.0-47.0 N [facility] HGB 13.6 g/dL 12.0-15.5 N [facility] MCH 34.1 G/DL pg 32.0-36.5 N [facility] MCHC 30.2 PG % 27.0-33.0 N [facility] PLATELETS 263 10 10*3/mm3 150-450 N [facility] RBC 4.51 10 10*6/mm3 4.00-5.40 N [facility] RDW 12.7 % 11.5-14.5 N [facility] WBC TOTAL 5.8 4.0-10.0 N [facility] Procedure Social History No Information Vital Signs ID Date Data Source UNK Name Value Range Interpretation Code Description Data Source(s) Body height 67 [in_i] 67 [in_i] [place] ([facility]) Body height 67 [in_i] 67 [in_i] [place] ([facility]) Diastolic blood pressure 81 mm[Hg] 81 mm[Hg] [place] ([facility]) Body height 67 [in_i] 67 [in_i] [place] ([facility]) Body mass index (BMI) [Ratio] 25.7 kg/m2 25.7 k g/m2 [place] ([facility]) Systolic blood pressure 122 mm[Hg] 122 mm[Hg] A [facility] ([facility]) Body weight 2628 [oz_av] 2628 [oz_av] [place] ([facility]) Diastolic blood pressure 81 mm[Hg] 81 mm[Hg] [place] ([facility]) Body height 67 [in_i] 67 [in_i] [place] ([facility]) Body mass index (BMI) [Ratio] 25.7 kg/m2 25.7 k g/m2 [place] ([facility]) Systolic blood pressure 122 mm[Hg] 122 mm[Hg] A [facility] ([facility]) Body weight 2628 [oz_av] 2628 [oz_av] [place] ([facility]) Diastolic blood pressure 81 mm[Hg] 81 mm[Hg] [place] ([facility]) Body height 67 [in_i] 67 [in_i] [place] ([facility]) Body mass index (BMI) [Ratio] 25.7 kg/m2 25.7 k g/m2 [place] ([facility]) Systolic blood pressure 122 mm[Hg] 122 mm[Hg] A [place] ([facility]) Body weight 2628 [oz_av] 2628 [oz_av] [place] ([facility]) Diastolic blood pressure 81 mm[Hg] 81 mm[Hg] [place] ([facility]) Body height 67 [in_i] 67 [in_i] [place] ([facility]) Body mass index (BMI) [Ratio] 26.1 kg/m2 26.1 k g/m2 [place] ([facility]) Systolic blood pressure 126 mm[Hg] 126 mm[Hg] [place] ([facility]) Body weight 2662 [oz_av] 2662 [oz_av] [place] ([facility]) Diastolic blood pressure 81 mm[Hg] 81 mm[Hg] [place] ([facility]) Body height 67 [in_i] 67 [in_i] [place] ([facility]) Body mass index (BMI) [Ratio] 26.1 kg/m2 26.1 k g/m2 [place] ([facility]) Systolic blood pressure 126 mm[Hg] 126 mm[Hg] [place] ([facility]) Body weight 2662 [oz_av] 2662 [oz_av] [place] ([facility]) Diastolic blood pressure 81 mm[Hg] 81 mm[Hg] [place] ([facility]) Body height 67 [in_i] 67 [in_i] [place] ([facility]) Body mass index (BMI) [Ratio] 26.1 kg/m2 26.1 k g/m2 [place] ([facility]) Systolic blood pressure 126 mm[Hg] 126 mm[Hg] [place] ([facility]) Body weight 2662 [oz_av] 2662 [oz_av] [place] ([facility]) Diastolic blood pressure 81 mm[Hg] 81 mm[Hg] [place] ([facility]) Body height 67 [in_i] 67 [in_i] [place] ([facility]) Body mass index (BMI) [Ratio] 26.1 kg/m2 26.1 k g/m2 [place] ([facility]) Systolic blood pressure 126 mm[Hg] 126 mm[Hg] [place] ([facility]) Body weight 2662 [oz_av] 2662 [oz_av] [place] ([facility]) Patient Treatment Plan of Care Planned Activity Planned Date Details Description Data Source (s) Amoxicillin 500 MG / Clavulanate 125 MG Oral Tablet [place] ([facility]) Amoxicillin 500 MG / Clavulanate 125 MG Oral Tablet [place] ([facility]) Amoxicillin 500 MG / Clavulanate 125 MG Oral Tablet [place] ([facility]) Amoxicillin 500 MG / Clavulanate 125 MG Oral Tablet [place] ([facility])
[2021-04-16] MEDS ORDERED: diphenhydrAMINE 50MG/ML VIAL (J1200) As Ordered ONE (10:53)
[2021-04-16] MEDS ORDERED: HALOPERIDOL 5MG/ML VIAL (J1630 PER 1) As Ordered ONE (10:53)
[2021-04-16] MEDS ORDERED: LORazepam 2 MG/ML VIAL As Ordered ONE (10:55)
[2021-04-16] MEDS ORDERED: diphenhydrAMINE 50MG/ML VIAL (J1200) IM ONE (11:40)
[2021-04-16] MEDS ORDERED: HALOPERIDOL 5MG/ML VIAL (J1630 PER 1) IM ONE (11:40)
[2021-04-16] MEDS ORDERED: LORazepam 2 MG/ML VIAL IM ONE (11:40)
--- OUTSIDE RECORDS SUMMARY | 2021-04-16 11:44 | CCD ---
Author Author [facility] Organization [facility] Address Unknown Phone Unavailable Care Team Providers Care Morning Show Producer Name Role Phone Gemma Rae Unavailable [phone] Dominga, Catie Unavailable Unavailable Dominga, Catie Unavailable [...] Unavailable Unavailable Dino Arnold MD Unavailable Unavailable iDno Arnold MD Unavailable Unavailable Dino Arnold MD [...] Unavailable Dino Arnold MD Unavailable Unavailable Dino Anrold MD Unavailable Unavailable Dino Arnold MD Unavailable [...] Unavailable Arnold, Dino Zhou MD Unavailable Unavailable Arnodl, Dino Zhou MD Unavailable Unavailable Arnold, Dino Zhou MD Unavailable Unavailable Arnold, Dino Zhou MD Unavailable Unavailable Arnold, Dino Zhou MD Unavailable Unavailable Arnold, Dino Zhou MD Unavailable Unavailable Arnold, Dino Zhou MD Unavailable Unavailable Arnold, Dino Zhou MD Unavailable Unavailable Arnold, Dino Zhou MD Unavailable Unavailable Carlitos, A Evelyn WAFER FAB OPERATOR Unavailable Unavailable Carlitos, A Evelyn WAFER FAB OPERATOR Unavailable Unavailable Carlitos, A Evelyn WAFER FAB OPERATOR Unavailable Unavailable Carlitos, A Evelyn WAFER FAB OPERATOR Unavailable Unavailable Carlitos, A Evelyn WAFER FAB OPERATOR Unavailable Unavailable Carlitos, A Evelyn WAFER FAB OPERATOR Unavailable Unavailable Carlitos, A Evelyn WAFER FAB OPERATOR Unavailable Unavailable Carlitos, A Evelyn WAFER FAB OPERATOR Unavailable Unavailable Carlitos, A Evelyn WAFER FAB OPERATOR Unavailable Unavailable Carlitos, A Evelyn WAFER FAB OPERATOR Unavailable Unavailable Carlitos, A Evelyn WAFER FAB OPERATOR Unavailable Unavailable Carlitos, A Evelyn WAFER FAB OPERATOR Unavailable Unavailable Carlitos, A Evelyn WAFER FAB OPERATOR Unavailable Unavailable Carlitos, A Evelyn WAFER FAB OPERATOR Unavailable Unavailable Cralitos, A Evelyn WAFER FAB OPERATOR Unavailable Unavailable Carlitos, A Evelyn WAFER FAB OPERATOR Unavailable Unavailable Carlitos, A Evelyn WAFER FAB OPERATOR Unavailable Unavailable Carlitos, A Evelyn WAFER FAB OPERATOR Unavailable Unavailable Carlitos, A Evelyn WAFER FAB OPERATOR Unavailable Unavailable Carlitos, A Evelyn WAFER FAB OPERATOR Unavailable Unavailable Carlitos, A Evelyn WAFER FAB OPERATOR Unavailable Unavailable Carlitos, A Evelyn WAFER FAB OPERATOR Unavailable Unavailable Carlitos, A Evelyn WAFER FAB OPERATOR Unavailable Unavailable Carlitos, A Evelyn WAFER FAB OPERATOR Unavailable Unavailable Carlitos, A Evelyn WAFER FAB OPERATOR Unavailable Unavailable Carlitos, A Evelyn WAFER FAB OPERATOR Unavailable Unavailable Carlitos, A Evelyn WAFER FAB OPERATOR Unavailable Unavailable Carlitos, A Evelyn WAFER FAB OPERATOR Unavailable Unavailable Carlitos, A Evelyn WAFER FAB OPERATOR Unavailable Unavailable Carlitos, A Evelyn WAFER FAB OPERATOR Unavailable Unavailable Carlitos, A Evelyn WAFER FAB OPERATOR Unavailable Unavailable Re-disclosure Warning The records that [...] is protected by Article 27-F of the [facility] Public Health law. If you continue you may have access to information: Regarding HIV / AIDS; Provided by facilities licensed or operated by the [facility] Office of Mental Health; or Provided by the [facility] Office for People With Developmental Disabilities. If such information is present, then the following [facility] mandated warning applies: This information has been [...] law may result in a fine or penitentiary sentence or both. A general authorization for the release of medical or other information is NOT sufficient authorization for further disc losure. Encounters Encounter Providers Location Date Indications Data Source(s ) [place] [facility] [place] [address] [place] [address], Ph. Attender: Gemma Rae [facility] Medical 01/15/2021 12:00:00 AM EDT DELTA ([facility]) Angeles Orr MD: [address] [place] [address], Ph. Attender: Angeles Orr [facility] Medical 11/08/2020 12:00:00 AM EDT KALIE ([facility]) Angeles Orr MD: [address] [place] [address], Ph. Attender: Angeles Orr [facility] Medical 11/08/2020 12:00:00 AM EDT DELTA ([facility]) COLEMAN Hutchinson: [address], [place] [address], Ph. Attender: Evelyn Urbina [facility] Medical 11/03/2020 12:00:00 AM EDT KALIE ([facility]) Evelyn Urbina [facility]: [address] [place] [address], Ph. Attender: Evelyn Urbina [facility] Medical 11/03/2020 12:00:00 AM EDT KALIE ([facility]) Evelyn Urbina [facility]: [address] [place] [address], Ph. Attender: Evelyn Urbina [facility] Medical 11/03/2020 12:00:00 AM EDT KALIE ([facility]) Angeles Orr MD: [address], [place] [address], Ph. Attender: Angeles Orr [facility] Medical 10/16/2020 12:00:00 AM EDT KALIE ([facility]) Angeles Orr MD: [address], [place] [address], Ph. Attender: Angeles Orr [facility] Medical 10/16/2020 12:00:00 AM EDT KALIE ([facility]) Angeles Orr MD: [address], [place] [address], Ph. Attender: Angeles Orr [facility] Medical 10/16/2020 12:00:00 AM EDT KALIE ([facility]) Angeles Orr MD: [address], [place] [address], Ph. Attender: Angeles Orr [facility] 10/16/2020 12:00:00 AM EDT DELTA ([facility]) Outpatient Attender: Abelardo Arnold MD FP 03/24/2020 05:33:02 PM EDT [facility] Outpatient Attender: Abelardo Arnold MD FP 03/24/2020 12:24:02 PM EDT [facility] Outpatient Attender: Abelardo Arnold MD FP 03/24/2020 12:24:00 PM EDT [facility] Outpatient Attender: Abelardo Arnold MD FP 03/24/2020 12:20:04 PM EDT [facility] Outpatient Attender: Abelardo Arnold MD FP 03/24/2020 12:20:02 PM EDT [facility] Outpatient Attender: Abelardo Arnold MD FP 03/24/2020 12:18:02 PM EDT [facility] Outpatient Attender: Abelardo Arnold MD FP 03/24/2020 12:18:00 PM EDT [facility] Outpatient Attender: Abelardo Arnold MD FP 03/23/2020 04:58:00 PM EDT [facility] Outpatient Attender: Abelardo Arnold MD FP 03/23/2020 04:56:01 PM EDT [facility] Outpatient Attender: Abelardo Arnold MD FP 03/23/2020 04:53:00 PM EDT [facility] Outpatient FP 03/23/2020 04:52:00 PM EDT [facility] Outpatient FP 03/23/2020 03:11:00 PM EDT [facility] Outpatient FP 03/23/2020 03:10:01 PM EDT [facility] Outpatient FP 03/23/2020 02:47:00 PM EDT [facility] Medications Medication Brand Name Start Date Product Form Dose Route Admi nistrative Instructions Pharmacy Instructions Status Indications Reaction Description Data Source(s) Amoxicillin 500 MG / Clavulanate 125 MG Oral Tablet amoxicillin 500 mg-potassium clavulanate 125 mg tablet amoxicillin 500 mg-potassium clavulanate 125 mg tablet completed amoxicillin 500 MG / clavulanate 125 MG Oral Tablet KALIE ([facility]) Amoxicillin 500 MG / Clavulanate 125 MG Oral Tablet amoxicillin 500 mg-potassium clavulanate 125 mg tablet amoxicillin 500 mg-potassium clavulanate 125 mg tablet completed amoxicillin 500 MG / clavulanate 125 MG Oral Tablet KALIE ([facility]) Amoxicillin 500 MG / Clavulanate 125 MG Oral Tablet amoxicillin 500 mg-potassium clavulanate 125 mg tablet amoxicillin 500 mg-potassium clavulanate 125 mg tablet completed amoxicillin 500 MG / clavulanate 125 MG Oral Tablet KALIE ([facility]) Amoxicillin 500 MG / Clavulanate 125 MG Oral Tablet amoxicillin 500 mg-potassium clavulanate 125 mg tablet amoxicillin 500 mg-potassium clavulanate 125 mg tablet completed amoxicillin 500 MG / clavulanate 125 MG Oral Tablet KALIE ([facility]) Insurance Providers Payer name Policy type / Coverage type Policy ID Covered green party ID Covered green party's relationship to rivera Policy Rivera Plan Information JUSTIN [id number] SP [id number] 500 [place]ARE [place] O [id number] S [id number] Managed Care Justin P [id number] S [id number] Medicaid S [id number] S [id number] [place] -OP [id number] 18 [id number] JUSTIN [id number] SP [id number] Problems, Conditions, and Diagnoses Code Display Name Description Problem Type Effective Dates Data Source(s) 432017048532175 Right foot drop Right Foot Drop Problem 2020 12:00:00 AM EDT DELTA ([facility]) [id number] Muscle paralysis Muscle Paralysis Problem 10/16/2020 12 :00:00 AM EDT [facility]) 063780194 Traumatic brain injury Traumatic Brain Injury Problem 10/16/2020 12:00:00 AM EDT DELTA ([facility]) 266585333 Seizure disorder Seizure Disorder Problem 10/16/2020 12 :00:00 AM EDT [facility]) 30714362 Cannabis abuse Cannabis Abuse Problem 10/16/2020 12:00: 00 AM EDT [facility]) 55166537 Nicotine dependence Nicotine Dependence Problem 0 10/16/2020 12:00:00 AM EDT DELTA ([facility]) 70519126 Substance abuse Substance Abuse Problem 10/16/2020 12:0 0:00 AM EDT [facility]) 080130760 Mixed anxiety and depressive disorder Mi xed Anxiety and Depressive Disorder Problem 10/16/2020 12:00:00 AM EDT KALIE ([facility]) [id number] Right foot drop Right Foot Drop Problem 2020 12:00:00 AM EDT KALIE ([facility]) 663756481 Muscle paralysis Muscle Paralysis Problem 10/16/2020 12 :00:00 AM EDT KALIE ([facility]) 057827714 Traumatic brain injury Traumatic Brain Injury Problem 10/16/2020 12:00:00 AM EDT KALIE ([facility]) 121972669 Seizure disorder Seizure Disorder Problem 10/16/2020 12 :00:00 AM EDT DELTA ([facility]) 93806738 Cannabis abuse Cannabis Abuse Problem 10/16/2020 12:00: 00 AM EDT KALIE ([facility]) 37329124 Nicotine dependence Nicotine Dependence Problem 0 10/16/2020 12:00:00 AM EDT KALIE ([facility]) 82565311 Substance abuse Substance Abuse Problem 10/16/2020 12:0 0:00 AM EDT KALIE ([facility]) 992142103 Mixed anxiety and depressive disorder Mi xed Anxiety and Depressive Disorder Problem 10/16/2020 12:00:00 AM EDT KALIE ([facility]) [id number] Right foot drop Right Foot Drop Problem 2020 12:00:00 AM EDT KALIE ([facility]) 508865058 Muscle paralysis Muscle Paralysis Problem 10/16/2020 12 :00:00 AM EDT KALIE ([facility]) 772907742 Traumatic brain injury Traumatic Brain Injury Problem 10/16/2020 12:00:00 AM EDT KALIE ([facility]) 956180200 Seizure disorder Seizure Disorder Problem 10/16/2020 12 :00:00 AM EDT KALIE ([facility]) 55520492 Cannabis abuse Cannabis Abuse Problem 10/16/2020 12:00: 00 AM EDT KALIE ([facility]) 29743511 Nicotine dependence Nicotine Dependence Problem 0 10/16/2020 12:00:00 AM EDT KALIE ([facility]) 93116591 Substance abuse Substance Abuse Problem 10/16/2020 12:0 0:00 AM EDT KALIE ([facility]) 451923522 Mixed anxiety and depressive disorder Mi xed Anxiety and Depressive Disorder Problem 10/16/2020 12:00:00 AM EDT KALIE ([facility]) [id number] Right foot drop Right Foot Drop Problem 2020 12:00:00 AM EDT KALIE ([facility]) 586690509 Muscle paralysis Muscle Paralysis Problem 10/16/2020 12 :00:00 AM EDT DELTA ([facility]) 410204847 Traumatic brain injury Traumatic Brain Injury Problem 10/16/2020 12:00:00 AM EDT KALIE ([facility]) 446993202 Seizure disorder Seizure Disorder Problem 10/16/2020 12 :00:00 AM EDT DELTA ([facility]) 78642781 Cannabis abuse Cannabis Abuse Problem 10/16/2020 12:00: 00 AM EDT KALIE ([facility]) 29806614 Nicotine dependence Nicotine Dependence Problem 0 10/16/2020 12:00:00 AM EDT KALIE ([facility]) 66805862 Substance abuse Substance Abuse Problem 10/16/2020 12:0 0:00 AM EDT KALIE ([facility]) 419520475 Mixed anxiety and depressive disorder Mi xed Anxiety and Depressive Disorder Problem 10/16/2020 12:00:00 AM EDT DELTA ([facility]) Surgeries/Procedures No Information Results ID Date Data Source [id number] 11/08/2020 11:10:00 AM EDT DELTA ([facility]) Name Value Range Interpretation Code Description Data Jacinta rce(s) Supporting Document(s) Hemoglobin A1c/Hemoglobin.total in Blood 4.8 %_of_total_HGB <5.7 Hemoglobin a1C KALIE ([facility]) ID Date Data Source [id number] 11/08/2020 11:10:00 AM EDT [facility]) Name Value Range Interpretation Code Description Data Jacinta rce(s) Supporting Document(s) Calcidiol [Mass/volume] in Serum or Plasma 15 NG/mL 30-100 Below low normal Vitamin D,25-Oh,total,ia [facility]) ID Date Data Source [id number] 11/08/2020 11:10:00 AM EDT [facility]) Name Value Range Interpretation Code Description Data Jacinta rce(s) Supporting Document(s) Cobalamin (Vitamin B12) [Mass/volume] in Serum or Plasma 482 pg/mL 200-1100 Vitamin B12 DELTA ([facility]) Folate [Mass/volume] in Serum or Plasma 17.0 NG/mL Folate, Serum [facility]) ID Date Data Source [id number] 11/08/2020 11:10:00 AM EDT [facility]) Name Value Range Interpretation Code Description Data Jacinta rce(s) Supporting Document(s) comment Comment DELTA ([facility]) Hepatitis C virus RNA [Units/volume] (vi ral load) in Serum or Plasma by Probe and target amplification method <15 detected not detected Abnormal (applies to non-numeric results) HCV RNA, Quantitative Real Time PCR DELTA ([facility]) Hepatitis C virus RNA [log units/volume] (viral load) in Serum or Plasma by Probe and target amplification method <1.18 detected not detected Ab normal (applies to non-numeric results) HCV RNA, Quantitative Real Time PCR [facility]) ID Date Data Source [id number] 11/08/2020 11:10:00 AM EDT [facility]) Name Value Range Interpretation Code Description Data Jacinta rce(s) Supporting Document(s) Hepatitis C virus Ab [Presence] in Serum or Plasma by Immuno assay reactive non-reactive Abnormal (applies to non-numeric results) Hepatitis C Antibo dy DELTA ([facility]) Hepatitis C virus Ab Signal/Cutoff in Serum or Plasma by Immunoa ssay <1.00 Above high normal Index KALIE ([facility]) ID Date Data Source [id number] 11/08/2020 11:10:00 AM EDT KALIE ([facility]) Name Value Range Interpretation Code Description Data Jacinta rce(s) Supporting Document(s) Erythrocytes [#/volume] in Blood by Automated count 4.70 million/uL 3.80-5.10 Red Blood Cell Count KALIE ([facility]) Leukocytes [#/volume] in Blood by Automated count 8.5 thousand/uL 3 .8-10.8 White Blood Cell Count KALIE ([facility]) Hematocrit [Volume Fraction] of Blood by Automated count 43.3 % 35.0-45.0 Hematocrit KALIE ([facility]) Erythrocyte mean corpuscular volume [Entitic volume] by Auto mated count 92.1 fL 80.0-100.0 Mcv KALIE ([facility]) Hemoglobin [Mass/volume] in Blood 15.0 g/dL 11.7-15.5 He moglobin KALIE ([facility]) Erythrocyte mean corpuscular hemoglobin [Entitic mass] by Automated count 31.9 pg 27.0-33.0 Mch KALIE ([facility]) Platelets [#/volume] in Blood by Automated count 309 thousand/uL 14 0-400 Platelet Count KALIE ([facility]) Erythrocyte mean corpuscular hemoglobin concentration [Mass/volume] by Automated count 34.6 g/dL 32.0-36.0 Mchc KALIE ([facility]) Platelet mean volume [Entitic volume] in Blood by Epifanio 9.4 fL 7.5-12.5 Mpv KALIE ([facility]) Erythrocyte distribution width [Ratio] by Automated count 12.5 % 11.0-15.0 Rdw KALIE ([facility]) Neutrophils [#/volume] in Blood by Automated count 5313 cells/uL 15 00-7800 Absolute Neutrophils KALIE ([facility]) Eosinophils [#/volume] in Blood by Automated count 213 cells/uL 15- 500 Absolute Eosinophils KALIE ([facility]) Monocytes [#/volume] in Blood by Automated count 587 cells/uL 200-9 50 Absolute Monocytes KALIE ([facility]) Lymphocytes [#/volume] in Blood by Automated count 2321 cells/uL 85 0-3900 Absolute Lymphocytes KALIE ([facility]) Basophils [#/volume] in Blood by Automated count 68 cells/uL 0-200 Absolute Basophils KALIE ([facility]) Neutrophils/100 leukocytes in Blood by Automated count 62.5 % 38-80 Neutrophils KALIE ([facility]) Monocytes/100 leukocytes in Blood by Automated count 6.9 % 0-13 Monocytes KALIE ([facility]) Lymphocytes/100 leukocytes in Blood by Automated count 27.3 % 15-49 Lymphocytes DELTA ([facility]) Eosinophils/100 leukocytes in Blood by Automated count 2.5 % 0-8 Eosinophils DELTA ([facility]) Basophils/100 leukocytes in Blood by Automated count 0.8 % 0-2 Basophils DELTA ([facility]) ID Date Data Source [id number] 11/08/2020 11:10:00 AM EDT [facility]) Name Value Range Interpretation Code Description Data Jacinta rce(s) Supporting Document(s) Glucose [Mass/volume] in Serum or Plasma 97 mg/dL 65-99 Glucose [facility]) Glomerular filtration rate/1.73 sq M.pre dicted among non-blacks [Volume Rate/Area] in Serum, Plasma or Blood by Creatinine-based formula (CKD-EPI) 118 mL/min/1.73m2 > or = 60 eGFR Non-afr. Albanian KALIE ([facility]) Urea nitrogen [Mass/volume] in Serum or Plasma 12 mg/dL 7-25 [facility]UN) [facility] Creatinine [Mass/volume] in Serum or Plasma 0.57 mg/dL 0.50-1.10 Creatinine [facility] Sodium [Moles/volume] in Serum or Plasma 138 mmol/L 135-146 [facility]odium [facility] Glomerular filtration rate/1.73 sq M.pre dicted among blacks [Volume Rate/Area] in Serum, Plasma or Blood by Creatinine-based formula (CKD-EPI) 136 mL/min/1.73m2 > or = 60 eGFR KALIE ([facility]) Urea nitrogen/Creatinine [Mass Ratio] in Serum or Plasma not applic able 6-22 BUN/creatinine Ratio DELTA ([facility]) Potassium [Moles/volume] in Serum or Plasma 4.3 mmol/L 3.5-5.3 Potassium DELTA ([facility]) Chloride [Moles/volume] in Serum or Plasma 105 mmol/L 98-110 Chloride DELTA ([facility]) Calcium [Mass/volume] in Serum or Plasma 9.6 mg/dL 8.6-10.2 Calcium DELTA ([facility]) Carbon dioxide, total [Moles/volume] in Serum or Plasma 27 mmol/L 20-32 Carbon Dioxide DELTA ([facility]) Protein [Mass/volume] in Serum or Plasma 6.7 g/dL 6.1-8.1 Protein, Total DELTA ([facility]) Albumin/Globulin [Mass Ratio] in Serum or Plasma 1.6 (calc) 1.0-2 .5 Albumin/globulin Ratio DELTA ([facility]) Bilirubin.total [Mass/volume] in Serum or Plasma 1.0 mg/dL 0.2-1 .2 Bilirubin, Total DELTA ([facility]) Globulin [Mass/volume] in Serum by calculation 2.6 g/dL_(calc) 1.9- 3.7 Globulin DELTA ([facility]) Albumin [Mass/volume] in Serum or Plasma 4.1 g/dL 3.6-5.1 Albumin DELTA ([facility]) Alanine aminotransferase [Enzymatic activity/volume] in Seru m or Plasma 9 U/L 6-29 Alt DELTA ([facility]) Aspartate aminotransferase [Enzymatic activity/volume] in Serum or Plasma 11 U/L 10-30 Ast DELTA ([facility]) Alkaline phosphatase [Enzymatic activity/volume] in Serum or Plasma 63 U/L 31-125 Alkaline Phosphatase DELTA ([facility]) ID Date Data Source [id number] 11/08/2020 11:10:00 AM EDT DELTA ([facility]) Name Value Range Interpretation Code Description Data Jacinta rce(s) Supporting Document(s) Thyrotropin [Units/volume] in Serum or Plasma 0.71 mIU/L Tsh DELTA ([facility]) Thyroxine (T4) free [Mass/volume] in Serum or Plasma 1.2 NG/dL 0 .8-1.8 T4, Free DELTA ([facility]) ID Date Data Source [id number] 11/08/2020 11:10:00 AM EDT [facility]) Name Value Range Interpretation Code Description Data Jacinta rce(s) Supporting Document(s) Cholesterol [Mass/volume] in Serum or Plasma 204 mg/dL <200 Above high normal Cholesterol, Total KALIE ([facility]) Cholesterol in HDL [Mass/volume] in Serum or Plasma 55 mg/dL > or = 50 HDL Cholesterol KALIE ([facility]) Cholesterol in LDL [Mass/volume] in Serum or Plasma by calculation 129 mg/dL_(calc) <100 Above high normal LDL-cholesterol KALIE ([facility]) Triglyceride [Mass/volume] in Serum or Plasma 102 mg/dL <150 Triglycerides KALIE ([facility]) Cholesterol.total/Cholesterol in HDL [Mass Ratio] in Serum o r Plasma 3.7 calc <5.0 Chol/hdlc Ratio KALIE ([facility]) Cholesterol non HDL [Mass/volume] in Serum or Plasma 149 mg/dL_( calc) <130 Above high normal Non HDL Cholesterol KALIE ([facility]) ID Date Data Source [id number] 11/08/2020 11:10:00 AM EDT [facility]) Name Value Range Interpretation Code Description Data Jacinta rce(s) Supporting Document(s) HIV 1+2 Ab+HIV1 p24 Ag [Presence] in Serum or Plasma b y Immunoassay non-reactive non-reactive HIV Ag/Ab, 4TH Gen DELTA ([facility]) ID Date Data Source [id number] 11/08/2020 11:10:00 AM EDT [facility]) Name Value Range Interpretation Code Description Data Jacinta rce(s) Supporting Document(s) Iron [Mass/volume] in Serum or Plasma 139 mcg/dL 40-190 Iron, Total KALIE ([facility]) Iron saturation [Mass Fraction] in Serum or Plasma 36 %_(calc) 16- 45 % Saturation DELTA ([facility]) Iron binding capacity [Mass/volume] in Serum or Plasma 389 m cg/dL_(calc) 250-450 Iron Binding Capacity DELTA ([facility]) Ferritin [Mass/volume] in Serum or Plasma 30 NG/mL 16-154 Ferritin [facility]) ID Date Data Source [id number] 03/24/2020 11:01:00 AM EDT [facility] Name Value Range Interpretation Code Description Data Jacinta rce(s) Supporting Document(s) TSH 1.050 microintl units/mL 0.358-3.740 N [facility] ID Date Data Source [id number] 03/24/2020 11:01:00 AM EDT [facility] Name Value Range Interpretation Code Description Data Jacinta rce(s) Supporting Document(s) TSH 1.050 microintl units/mL 0.358-3.740 N [facility] ID Date Data Source [id number] 03/24/2020 11:01:00 AM EDT [facility] Name Value Range Interpretation Code Description Data Jacinta rce(s) Supporting Document(s) HCT 39.9 % 36.0-47.0 N [facility] HGB 13.6 g/dL 12.0-15.5 N [facility] MCH 34.1 G/DL pg 32.0-36.5 N [facility] MCHC 30.2 PG % 27.0-33.0 N [facility] PLATELETS 263 10 10*3/mm3 150-450 N [facility] RBC 4.51 10 10*6/mm3 4.00-5.40 N [facility] RDW 12.7 % 11.5-14.5 N [facility] WBC TOTAL 5.8 4.0-10.0 N [facility] Procedure Social History No Information Vital Signs ID Date Data Source [id number] Name Value Range Interpretation Code Description Data Source(s) Body height 67 [in_i] 67 [in_i] DELTA ([facility]) Body height 67 [in_i] 67 [in_i] KALIE ([facility]) Diastolic blood pressure 81 mm[Hg] 81 mm[Hg] DELTA ([facility]) Body height 67 [in_i] 67 [in_i] KALIE ([facility]) Body mass index (BMI) [Ratio] 25.7 kg/m2 25.7 k g/m2 KALIE ([facility]) Systolic blood pressure 122 mm[Hg] 122 mm[Hg] A [facility] ([facility]) Body weight 2628 [oz_av] 2628 [oz_av] KALIE ([facility]) Diastolic blood pressure 81 mm[Hg] 81 mm[Hg] KALIE ([facility]) Body height 67 [in_i] 67 [in_i] KALIE ([facility]) Body mass index (BMI) [Ratio] 25.7 kg/m2 25.7 k g/m2 [facility] ([facility]) Systolic blood pressure 122 mm[Hg] 122 mm[Hg] A [facility] ([facility]) Body weight 2628 [oz_av] 2628 [oz_av] KALIE ([facility]) Diastolic blood pressure 81 mm[Hg] 81 mm[Hg] KALIE ([facility]) Body height 67 [in_i] 67 [in_i] KALIE ([facility]) Body mass index (BMI) [Ratio] 25.7 kg/m2 25.7 k g/m2 KAL[facility] ([facility]) Systolic blood pressure 122 mm[Hg] 122 mm[Hg] A JUVEA ([facility]) Body weight 2628 [oz_av] 2628 [oz_av] KALIE ([facility]) Diastolic blood pressure 81 mm[Hg] 81 mm[Hg] KALIE ([facility]) Body height 67 [in_i] 67 [in_i] KALIE ([facility]) Body mass index (BMI) [Ratio] 26.1 kg/m2 26.1 k g/m2 KAL[facility] ([facility]) Systolic blood pressure 126 mm[Hg] 126 mm[Hg] A JUVEA ([facility]) Body weight 2662 [oz_av] 2662 [oz_av] KALIE ([facility]) Diastolic blood pressure 81 mm[Hg] 81 mm[Hg] KALIE ([facility]) Body height 67 [in_i] 67 [in_i] KALIE ([facility]) Body mass index (BMI) [Ratio] 26.1 kg/m2 26.1 k g/m2 KALIE ([facility]) Systolic blood pressure 126 mm[Hg] 126 mm[Hg] A JUVEA ([facility]) Body weight 2662 [oz_av] 2662 [oz_av] KALIE ([facility]) Diastolic blood pressure 81 mm[Hg] 81 mm[Hg] KALIE ([facility]) Body height 67 [in_i] 67 [in_i] KALIE ([facility]) Body mass index (BMI) [Ratio] 26.1 kg/m2 26.1 k g/m2 KAL[facility] ([facility]) Systolic blood pressure 126 mm[Hg] 126 mm[Hg] A THENA ([facility]) Body weight 2662 [oz_av] 2662 [oz_av] KALIE ([facility]) Diastolic blood pressure 81 mm[Hg] 81 mm[Hg] KALIE ([facility]) Body height 67 [in_i] 67 [in_i] KALIE ([facility]) Body mass index (BMI) [Ratio] 26.1 kg/m2 26.1 k g/m2 KALIE ([facility]) Systolic blood pressure 126 mm[Hg] 126 mm[Hg] A THENA ([facility]) Body weight 2662 [oz_av] 2662 [oz_av] KALIE ([facility]) Patient Treatment Plan of Care Planned Activity Planned Date Details Description Data Source (s) Amoxicillin 500 MG / Clavulanate 125 MG Oral Tablet KALIE ([facility]) Amoxicillin 500 MG / Clavulanate 125 MG Oral Tablet KALIE ([facility]) Amoxicillin 500 MG / Clavulanate 125 MG Oral Tablet KALIE ([facility]) Amoxicillin 500 MG / Clavulanate 125 MG Oral Tablet KALIE ([facility])
[2021-04-16 12:20] LABS: HEMATOCRIT 45.4 % (36.0-47.0); MEAN CORPUSCULAR HEMOGLOBIN 29.6 pg (27.0-33.0); MEAN CORPUSCULAR VOLUME 89.7 fl (80.0-96.0); PLATELET COUNT, AUTOMATED 279 10^3/uL (150-450); RED BLOOD COUNT 5.06 10^6/uL (4.00-5.40); WHITE BLOOD COUNT 10.3 10^3/uL (4.0-10.0)
[2021-04-16 12:49] LABS: ACETAMINOPHEN LEVEL < 2.0 UG/ML (10.0-30.0); ALBUMIN 3.9 GM/DL (3.2-5.2); ALT/SGPT 17 U/L (12-78); BILIRUBIN,DIRECT 0.2 MG/DL (0.0-0.2); BILIRUBIN,TOTAL 0.9 MG/DL (0.2-1.0); BLOOD UREA NITROGEN 20 MG/DL (7-18); CALCIUM LEVEL 9.5 MG/DL (8.5-10.1); CARBON DIOXIDE LEVEL 25 MEQ/L (21-32); CHLORIDE LEVEL 106 MEQ/L (98-107); CREATININE FOR GFR 0.82 MG/DL (0.55-1.30); ETHYL ALCOHOL (ETHANOL) < 0.003 % (0.000-0.010); GLOMERULAR FILTRATION RATE > 60.0 (>60); GLUCOSE, FASTING 78 MG/DL (70-100); POTASSIUM SERUM 3.8 MEQ/L (3.5-5.1); SALICYLATE LEVEL < 1.7 MG/DL (5.0-30.0); SODIUM LEVEL 138 MEQ/L (136-145); TOTAL PROTEIN 7.3 GM/DL (6.4-8.2)
[2021-04-16 12:51] LABS: HCG, SERUM QUALITATIVE NEGATIVE (NEGATIVE)
[2021-04-16 17:37] LABS: AMPHETAMINES LEVEL URINE NEGATIVE (NEGATIVE); BARBITURATES URINE NEGATIVE (NEGATIVE); BENZODIAZEPINES URINE POSITIVE (NEGATIVE); CANNABINOIDS URINE POSITIVE (NEGATIVE); COCAINE METABOLITE URINE POSITIVE (NEGATIVE); METHADONE URINE NEGATIVE (NEGATIVE); OPIATES URINE NEGATIVE (NEGATIVE); PHENCYCLIDINE URINE NEGATIVE (NEGATIVE)
[2021-04-16 17:50] VITALS: BP 116/63
== END 2021-04-16 19:01 | disposition home or self-care (01) ==
LOC: M ED 10:19
DX: F43.20 Adjustment disorder, unspecified (principal); F15.10 Other stimulant abuse, uncomplicated; F43.10 Post-traumatic stress disorder, unspecified; Z87.820 Personal history of traumatic brain injury; Z79.899 Other long term (current) drug therapy; F17.210 Nicotine dependence, cigarettes, uncomplicated
CPT/HCPCS: 36415; 80048; 80076; 80143; 80307; 82077; 84443; 84703; 85027; 96372; 99285; J1200; J1630; J2060